=== PATIENT | male | born 1995 | race Caucasian/White ===

== ENCOUNTER 2023-05-09 20:55 | Emergency (ER) | payer OTHER ==
[~2023-05-09] VITALS: Ht 185.4 cm; Wt 95.5 kg
[~2023-05-09 20:55] MED LIST: CEPHALEXIN500 M1 PO; NO HOME MEDICATIONS; NORCO 325 MG-51 TAB PO
[2023-05-09 21:54] LABS: COLLECTION METHOD CLEAN CATCH
[2023-05-09 22:09] VITALS: BP 140/87; PULSE 80; TEMP 99.3
[2023-05-09 22:18] LABS: URINE APPEARANCE Clear (CLEAR/HAZY); URINE BLOOD Negative (NEGATIVE); URINE COLOR Yellow (YELLOW); URINE GLUCOSE Negative (NEGATIVE); URINE KETONE TRACE (NEGATIVE); URINE NITRATE Negative (NEGATIVE); URINE PROTEIN(semi-quant) Negative (NEGATIVE); URINE UROBILINOGEN 0.2 E.U/dL (0.2-1.0)
[2023-05-09 22:19] LABS: MUCOUS Present (NOT PRESENT); SQUAMOUS EPITHELIAL None Seen /hpf (0-10); URINE BACTERIA Occasional /hpf (NONE SEEN); URINE RBC None Seen /hpf (0-2)
== END 2023-05-09 22:10 | disposition short-term general hospital (02) ==
LOC: EDSEX 20:55 → COL.ER 20:55
PROVIDERS: Emergency Medicine
DX: N50.812 Left testicular pain (principal)